=== PATIENT | female | born 1930 | race Caucasian/White ===

== ENCOUNTER 2017-10-30 20:55 | Observation (INO) | payer MEDICARE, BC ==
[2017-10-30] MEDS ORDERED: NITROGLYCERIN 0.4 MG/TAB BTL SL PRN (21:08)
--- NOTE | 2017-10-30 21:10 | ERNOTE ---
Chest Pain/Cardiac HPI Chief Complaint: Chest Pain Time Seen by Provider: 10/30/17 20:58 Source: patient, EMS Exam Limitations: no limitations Allergies/Adverse Reactions: Allergies gabapentin Adverse Reaction (Intermediate, Verified 10/31/17 00:31) Other omeprazole Adverse Reaction (Intermediate, Verified 10/31/17 00:31) Nausea Home Medications: HOME MEDICATIONS Lansoprazole [Prevacid] 15 mg PO DAILY 10/04/13 [Last Taken Unknown] Levothyroxine Sodium [Synthroid] 137 mcg PO DAILY 10/04/13 [Last Taken Unknown] Losartan Potassium [Cozaar] 50 mg PO BID 10/04/13 [Last Taken Unknown] Polyethylene Glycol 3350 [Miralax] 17 gm PO DAILY 10/04/13 [Last Taken Unknown] Spironolactone [Aldactone] 25 mg PO DAILY 10/04/13 [Last Taken Unknown] Vitamin B Complex [B Complex] 1 each PO DAILY 10/04/13 [Last Taken Unknown] amLODIPine BESYLATE [Norvasc (Amlodipine)] 5 mg PO DAILY 10/04/13 [Last Taken Unknown] Atorvastatin Calcium 40 mg PO HS 10/30/17 [Last Taken Unknown] Iron 28 mg PO DAILY 10/30/17 [Last Taken Unknown] Metoprolol Tartrate 50 mg PO BID 10/30/17 [Last Taken 10/30/17 07:00] Warfarin Sodium [Jantoven] 2.5 mg PO DAILY 10/30/17 [Last Taken Unknown] Warfarin Sodium [Jantoven] 5 mg PO DAILY 10/30/17 [Last Taken Unknown] Cyanocobalamin (Vitamin B-12) [Vitamin B-12] 1,000 mcg PO DAILY 10/31/17 [Last Taken Unknown] Iron,Carb/Vit C/Vit B12/Folic [Fe C Plus Tablet] 1 each PO DAILY 10/31/17 [Last Taken Unknown] Levothyroxine Sodium [Synthroid] 137 mcg PO DAILY 10/31/17 [Last Taken Unknown] Mineral Oil, Light/Mineral Oil [Soothe Xp Eye Drops] 1 drop OP PRN 10/31/17 [ Last Taken Unknown] [place]-3/Dha/Epa/Fish Oil [Fish Oil 1,000 mg Softgel] 1,000 mg PO HS 10/31/17 [ Last Taken Unknown] Spironolactone [Aldactone] 25 mg PO DAILY 10/31/17 [Last Taken Unknown] Warfarin Sodium [Jantoven] 2.5 mg PO DAILY 10/31/17 [Last Taken Unknown] Narrative: Pt had onset of chest pressure around 14:30 today. It has been consistent throughout the afternoon and evening at approx 3/10. On the ambulance she was given nitro which brought her chest pressure down to 1/10. Timing: constant Severity/Quality: mild Location: central Chest Pain Radiation: no radiation Activities at Onset: activity Modifying Factors - Improves: Present: nitroglycerin Aspirin Treatment Today: no aspirin today - cannot take ASA per patient Associated Symptoms: Present: shortness of breath - with Review of Systems - Review of Systems Constitutional: Absent: recent illness EYE: Present: no symptoms reported ENT: Present: no symptoms reported Respiratory: Present: shortness of breath - with activity more lately. Absent: cough Cardiology: Present: See HPI Gastrointestinal/Abdominal: Absent: nausea, vomiting Genitourinary: Present: no symptoms reported Musculoskeletal: Present: no symptoms reported Skin: Absent: rash Endocrine: Absent: excessive sweating, flushing Hematologic/Lymphatic: Present: no symptoms reported Psych: Present: no symptoms reported - Patient's Past Medical History Patient History - Cardiac/Respiratory: Atrial Fibrillation, Hypertension - Family History Mother Family History - Medical: Diabetes Type 2, Hypothyroidism Family History - Cardiac/Respiratory: CVA/Stroke, Hypertension Father Family History - Cancer: Stomach Brother Family History - Cardiac/Respiratory: CVA/Stroke son Family History - Medical: Family History - Cancer: Brain daughter Family History - Medical: Family History - Cardiac/Respiratory: Aneurysm Physical Exam - Physical Exam General Appearance: Present: wd/wn, alert, no apparent distress Head Exam: Present: normal inspection, no evidence of injury Eye Exam: Normal inspection: bilateral, PERRL: bilateral Ears, Nose, Throat: Present: normal ENT inspection Neck: Present: normal inspection, nontender Respiratory: Present: no respiratory distress, normal breath sounds, no accessory muscle use, lungs clear Cardiovascular/Chest: Present: regular rate, rhythm, no murmur Gastrointestinal/Abdominal: Present: nontender, nondistended, soft Back Exam: Present: normal inspection, normal range of motion Extremity Exam: Present: normal inspection, normal range of motion, no edema Neurological Exam: Present: alert, oriented, normal mood/affect, no motor/ sensory deficits Skin Exam: Present: normal color, warm/dry Lymphatic Exam: Present: no adenopathy ED Progress - Results and Orders Patient's Lab Results:: I have reviewed the patient's lab results. Results and Orders: Laboratory Tests 10/30/17 10/30/17 10/30/17 21:18 21:18 21:18 WBC 6.9 Hgb 13.1 Hct 37.3 Plt Count 144 L PT 22.1 H INR (Anticoag Therapy) 2.19 H PTT (Linda) 33.0 H Sodium 140 Potassium 3.7 Chloride 104 Carbon Dioxide 26.2 BUN 22 Creatinine 1.18 Random Glucose 138 H Calcium 9.1 Total Bilirubin 0.3 AST 17 ALT 30 Alkaline Phosphatase 73 Creatine Kinase CK-MB (CK-2) Troponin I 0.150 H* Total Protein 6.8 Albumin 3.6 10/30/17 21:18 WBC Hgb Hct Plt Count PT INR (Anticoag Therapy) PTT (Linda) Sodium Potassium Chloride Carbon Dioxide BUN Creatinine Random Glucose Calcium Total Bilirubin AST ALT Alkaline Phosphatase Creatine Kinase 102 CK-MB (CK-2) 2.3 Troponin I Total Protein Albumin - Vital Signs Patient's Vital Signs:: I have reviewed the patient's vital signs. - EKG EKG: RBBB - incomplete EKG read: Interp. by me EKG Comments: possible LVH, Old [place] - X-Ray X-Ray #1 X-Ray: chest Interpretation: Reviewed by me X-ray Comments: IMPRESSION: NO ACUTE CARDIOPULMONARY ABNORMALITY IDENTIFIED. Electronically signed by Gurpreet Hughes D.O.. - Progress/Reassessment Progress:: Unchanged Progress Note-Subjective: 10/30/17 23:45 Spoke with Ruy RG hospitalist. She agrees with obs admit. Departure Clinical Impression: Elevated troponin I level Chest pain Qualifiers: Chest pain type: other chest pain Qualified Code(s): R07.89 - Other chest pain ; R07.8 - Other chest pain - Departure Disposition: Short Term Hospital Inpatient Condition: Fair
[2017-10-30 21:25] LABS: Hematocrit 37.3 % (37.0-47.0); Hemoglobin 13.1 gm/dL (12.5-16.0); Mean Cell Volume 91.6 fl (78-100); Mean Corpuscular Hemoglobin 32.2 pg (27-31); Mean Corpuscular Hgb Conc 35.1 g/dl (32-36); Mean Platelet Volume 10.8 fl (6.0-9.5); Neutrophil # 4.1 K/mm3 (1.3-6.0); Neutrophil % 58.5 % (42-75.0); Platelet Count 144 K/mm3 (150-450); Red Blood Count 4.07 M/mm3 (4.2-5.4); Red Cell Distribution Width 12.6 % (11.5-14.0); White Blood Count 6.9 K/mm3 (4.0-10.5)
[2017-10-30 21:36] LABS: Prothrombin Time (Patient) 22.1 Seconds (9.0-11.0)
[2017-10-30 21:37] LABS: INR 2.19 INR (0.90-1.10)
[2017-10-30 21:44] LABS: Albumin * 3.6 gm/dl (3.4-5.0); Anion Gap 13.5 mmol/L (6.8-13.8); BUN/Creatinine Ratio 18.6 (9.0-21.6); Bilirubin, Total 0.3 mg/dL (0.0-1.1); Ca. Corrected For Albumin 9.1 mg/dL (8.4-10.2); Calcium * 9.1 mg/dL (7.9-10.9); Carbon Dioxide 26.2 mmol/L (24-32.6); Potassium 3.7 mmol/L (3.4-4.6); Total Protein 6.8 gm/dL (6.2-8.2)
[2017-10-30 21:46] LABS: Troponin I 0.15 ng/ml (0.00-0.10)
[2017-10-30 22:48] LABS: CKMB 2.3 ng/mL (0.0-9.0)
--- NOTE | 2017-10-31 00:47 | HP ---
Chief Complaint - Chief Complaint Date of Service: 10/31/17 Time of Service: 00:46 Chief Complaint: chest pressure History of Present Illness: 87 years old white female adm to the hospital with reports of chest pressure. PMH hypertension, hyperlipidemia,hypothyroidism, and a-fib (Coumadin). per family pt was scrubbing the bathroom and doing work around the house when she began experiencing chest pressure with numbness to her hands approximately at 8: 30pm. She denies shortness of breath, palpitation,nausea, vomiting, diaphoresis and dizziness. EMS was called and nitro tab given enroute to the hospital. In ER she denies chest pressure after nitro, Initial troponin 0.153, EKG- NSR No ST changes, CKMB and CK-unremarkable. Plan to adm for observation and monitor serial troponin as chest pain resolved with nitro-tab.Monitor on telemetry and Plan for stress test. plan of care discussed with pt and family they verbalized understanding and agrees. - Patient's Past Medical History Patient History - Medical: Diabetes Type 2, Depression, GERD, Hypothyroidism Patient History - Cardiac/Respiratory: Atrial Fibrillation - on coumadin, Hypertension, Hyperlipidemia Patient History - Cancer: No Hx of Cancer Patient History - Surgical Procedures: Appendectomy, Cholecystectomy, Hysterectomy, Other - Renal bypass. bowel resection secondary to strangulated bowel. Patient History - Other: None LMP (females 10-50): Menopausal - Family History Mother Family History - Medical: Diabetes Type 2, Hypothyroidism Family History - Cardiac/Respiratory: CVA/Stroke, Hypertension Father Family History - Medical: Family History - Cancer: Stomach Brother Family History - Cardiac/Respiratory: CVA/Stroke son Family History - Medical: Family History - Cancer: Brain daughter Family History - Medical: Family History - Cardiac/Respiratory: Aneurysm - Social History Living Situations: alone Abuse History: No History of abuse Psych History: Hx of Depression Does anyone smoke in the home?: No Smoking Status: Never smoker Have you smoked in the past 12 months: No Do you dip or chew tobacco: No Patient requests Smoking Cessation Consult: No Initiate information on Smoking Cessation: Yes Alcohol Use: none Drug Use: none - Immunizations Immunizations Up to Date: Yes Hx Pneumococcal Vaccination: Yes History of Influenza Vaccine: Yes Review Of Systems (GEN) - Review of Systems Generalized/Overall Review: Present: No Symptoms Reported EENTM: Present: No Symptoms Reported Respiratory: Present: No Symptoms Reported Cardiac: Present: No Symptoms Reported Abdominal: Present: No Symptoms Reported Genitourinary: Present: No Symptoms Reported Musculoskeletal: Present: No Symptoms Reported Neurological: Present: No Symptoms Reported Skin: Present: No Symptoms Reported Endocrine: Present: No Symptoms Reported Allergies/Adverse Reactions: Allergies Allergy/AdvReac Type Severity Reaction Status Date / Time gabapentin AdvReac Intermediate Other Verified 10/31/17 00:31 omeprazole AdvReac Intermediate Nausea Verified 10/31/17 00:31 Home Medications: HOME MEDICATIONS Lansoprazole [Prevacid] 15 mg PO DAILY 10/04/13 [Last Taken Unknown] Losartan Potassium [Cozaar] 50 mg PO BID 10/04/13 [Last Taken Unknown] Polyethylene Glycol 3350 [Miralax] 17 gm PO DAILY 10/04/13 [Last Taken Unknown] Spironolactone [Aldactone] 25 mg PO DAILY 10/04/13 [Last Taken Unknown] Vitamin B Complex [B Complex] 1 each PO DAILY 10/04/13 [Last Taken Unknown] amLODIPine BESYLATE [Norvasc (Amlodipine)] 5 mg PO DAILY 10/04/13 [Last Taken Unknown] Atorvastatin Calcium 40 mg PO HS 10/30/17 [Last Taken Unknown] Iron 28 mg PO DAILY 10/30/17 [Last Taken Unknown] Metoprolol Tartrate 50 mg PO BID 10/30/17 [Last Taken 10/30/17 07:00] Cyanocobalamin (Vitamin B-12) [Vitamin B-12] 1,000 mcg PO DAILY 10/31/17 [Last Taken Unknown] Levothyroxine Sodium [Synthroid] 137 mcg PO DAILY 10/31/17 [Last Taken Unknown] Mineral Oil, Light/Mineral Oil [Soothe Xp Eye Drops] 1 drop EACHEYE PRN PRN [Last Taken Unknown] [place]-3/Dha/Epa/Fish Oil [Fish Oil 1,000 mg Softgel] 1,000 mg PO HS 10/31/17 [ Last Taken Unknown] Vit A/Vit C/Vit E/Zinc/Copper [Preservision Areds Tablet] 1 each PO DAILY [Last Taken Unknown] Warfarin Sodium [Jantoven] 2.5 mg PO DAILY 10/31/17 [Last Taken Unknown] Warfarin Sodium [Jantoven] 5 mg PO .ONLY Monday10/31/17 [Last Taken Unknown] Exam - Exam Vital Signs: Vital Signs - Last Taken Temp 36.7 C 10/30/17 20:56 Pulse 63 10/30/17 23:42 Resp 18 10/30/17 23:42 BP 141/56 10/30/17 23:42 Pulse Ox 96 10/30/17 23:42 Constitutional: Present: Alert, Oriented x3, Cooperative, No distress, Morbidly obese ENT Exam: Present: hard of hearing Eye Exam: bilateral eye: normal inspection Neck: Present: full range of motion Back Exam: Present: normal inspection Respiratory: Present: chest non-tender, lungs clear, normal breath sounds, no respiratory distress Cardiovascular/Chest: Present: normal peripheral pulses, regular rate, rhythm, no chest tenderness, systolic murmur, edema - Trace BLLE Peripheral Pulses: dorsalis-pedis (R): 2+, dorsalis-pedis (L): 2+ Abdomen: Present: Normal bowel sounds, soft, nontender, nondistended, no rebound tenderness Extremity: Present: normal range of motion, non-tender, normal inspection, no calf tenderness, swelling Skin Exam: Present: normal color, warm/dry Neurologic: Present: oriented x 3 Appearance: Present: appropriate appearance, appropriate insight Eye contact: Present: cooperative, good eye contact Thoughts: Present: normal thought pattern, no apparent hallucination Diagnostic Studies: Laboratory Results WBC 6.9 K/mm3 (4.0-10.5) 10/30/17 21:18 RBC 4.07 M/mm3 (4.2-5.4) L 10/30/17 21:18 Hgb 13.1 gm/dL (12.5-16.0) 10/30/17 21:18 Hct 37.3 % (37.0-47.0) 10/30/17 21:18 MCV 91.6 fl (78-100) 10/30/17 21:18 MCH 32.2 pg (27-31) H 10/30/17 21:18 MCHC 35.1 g/dl (32-36) 10/30/17 21:18 RDW 12.6 % (11.5-14.0) 10/30/17 21:18 Plt Count 144 K/mm3 (150-450) L 10/30/17 21:18 MPV 10.8 fl (6.0-9.5) H 10/30/17 21:18 Immature Gran % (Auto) 0.30 % (0.001-0.429) 10/30/17 21: Immature Gran # (Auto) 0.02 K/mm3 (0.000-0.0310) 10/30/17 21:18 Neutrophils % 58.5 % (42-75.0) 10/30/17 21:18 Lymphocytes % 28.6 % (20-51) 10/30/17 21:18 Monocytes % 8.7 % (0.0-9) 10/30/17 21:18 Eosinophils % 3.3 % (0.0-3.0) H 10/30/17:18 Basophils % 0.6 % (0.0-1.0) 10/30/17: Nucleated RBC % 0.0 k/mm3 (0-1) 10/30/17: Neutrophils # 4.1 K/mm3 (1.3-6.0) 10/30/17 21:18 Lymphocytes # 2.0 k/mm3 (1.5-3.5) 10/30/17 21:18 Monocytes # 0.6 k/mm3 (0.0-1.0) 10/30/17 21:18 Eosinophils # 0.2 k/mm3 (0.0-0.7) 10/30/17 21:18 Absolute Basophils 0.0 k/mm3 (0.0-0.1) 10/30/17:18 PT 22.1 Seconds (9.0-11.0) H 10/30/17 21:18 INR (Anticoag Therapy) 2.19 INR (0.90-1.10) H 10/30/17 21:18 PTT (Linda) 33.0 Seconds (24-32) H 10/30/17 21:18 Sodium 140 mmol/L (132-142) 10/30/17 21:18 Plasma Sodium 141 mmol/L (130-142) 10/30/17 21:18 Potassium 3.7 mmol/L (3.4-4.6) 10/30/17 21:18 Chloride 104 mmol/L (97-106) 10/30/17 21:18 Carbon Dioxide 26.2 mmol/L (24-32.6) 10/30/17 21:18 Anion Gap 13.5 mmol/L (6.8-13.8) 10/30/17 21:18 BUN 22 mg/dL (3-23) 10/30/17 21:18 Creatinine 1.18 mg/dL (0.4-1.4) 10/30/17 21:18 Est GFR (Non-Af Amer) 46 mL/min (60-130) L 10/30/17 21:18 BUN/Creatinine Ratio 18.6 (9.0-21.6) 10/30/17 21:18 Random Glucose 138 mg/dL (70-110) H 10/30/17 21:18 Calcium 9.1 mg/dL (7.9-10.9) 10/30/17: Calcium Adj for Albumin 9.1 mg/dL (8.4-10.2) 10/30/17 21:18 Total Bilirubin 0.3 mg/dL (0.0-1.1) 10/30/17:18 AST 17 U/L (0-48) 10/30/17 21:18 ALT 30 U/L (19-67) 10/30/17 21:18 Alkaline Phosphatase 73 U/L (50-170) 10/30/17 21:18 Creatine Kinase 102 U/L (0-259) 10/30/17 21:18 CK-MB (CK-2) 2.3 ng/mL (0.0-9.0) 10/30/17 21:18 Troponin I 0.150 ng/ml (0.00-0.10) H* 10/30/17 21:18 Total Protein 6.8 gm/dL (6.2-8.2) 10/30/17 21:18 Albumin 3.6 gm/dl (3.4-5.0) 10/30/17 21:18 CXR: No acute cardiopulmonary findings Assessment/Plan - Narrative Narrative: Chest pain EMS gave pt nitro tab x1, in ER chest pain was resolved feeling of numbness in hands had resolved EKG- NSR, repeat in the morning with 3rd troponin. Continue with Telemetry monitoring CXR:No acute cardiopulmonary abnormality identified. On adm troponin 0.150--->0.136----> trending down Low sodium diet Continue with home dose Lipitor 40mg Q HS Consider having Cardiac stress out-pt Elevated troponin on adm 0.150---->0.136 Plan same as #1 A-Fib EKG- NSR On adm INR 2.19 Continue with home dose of Coumadin, pharmacy to manage Chronic conditions- stable Hypertension Hypothyroidism Glaucoma Code status: Full GI ppx: protonix VTE ppx: Ambulate and SCD Time 45 minutes and case discussed with Dr Martins - Assessment/Plan (1) Chest pain Problem: Acute Qualifiers: Chest pain type: other chest pain Qualified Code(s): R07.89 - Other chest pain; R07.8 - Other chest pain (2) Elevated troponin I level Problem: Acute (3) Afib Problem: Chronic (4) Hypertension Problem: Chronic (5) Hypothyroidism Problem: Chronic (6) Glaucoma Problem: Chronic
[2017-10-31] MEDS ORDERED: [UNRECOGNIZED DRUG - OTHER] OP PRN (01:48)
[2017-10-31] MEDS ORDERED: PANTOPRAZOLE SODIUM 20 MG TABLET.DR PO SCH (07:00)
[2017-10-31] MEDS ORDERED: LEVOTHYROXINE SODIUM 137 MCG TABLET PO SCH (07:00)
[2017-10-31 07:18] LABS: Prothrombin Time (Patient) 21.4 Seconds (9.0-11.0)
[2017-10-31 07:19] LABS: INR 2.12 INR (0.90-1.10)
[2017-10-31 07:26] LABS: Chol/HDL Risk Ratio 2.9 mg/dL (3.3-4.4); Troponin I 0.088 ng/ml (0.00-0.10)
[2017-10-31] MEDS: ASPIRIN 81 MG TABLET.DR PO SCH ×2 (08:16→08:22)
[2017-10-31] MEDS ORDERED: Iron 28 MG PO SCH (09:00)
[2017-10-31] MEDS ORDERED: CYANOCOBALAMIN 1,000 MCG TABLET PO SCH (09:00)
[2017-10-31] MEDS ORDERED: BETA-CAROTENE(A) W-C , E/MIN 1 TAB TABLET PO SCH (09:00)
[2017-10-31] MEDS ORDERED: METOPROLOL TARTRATE 50 MG TABLET PO SCH (09:00)
[2017-10-31] MEDS ORDERED: [UNRECOGNIZED DRUG - OTHER] PO SCH (09:00)
[2017-10-31] MEDS ORDERED: LOSARTAN POTASSIUM 50 MG TABLET PO SCH (09:00)
[2017-10-31] MEDS ORDERED: POLYETHYLENE GLYCOL 3350 119 GM BTL PO SCH (09:00)
[2017-10-31] MEDS ORDERED: VITAMIN B COMP W-C 1 TAB TABLET PO SCH (09:00)
[2017-10-31] MEDS ORDERED: SPIRONOLACTONE 25 MG TABLET PO SCH (09:00)
[2017-10-31] MEDS ORDERED: amLODIPine BESYLATE 5 MG TABLET PO SCH (09:00)
--- NOTE | 2017-10-31 11:34 | DS ---
(1) Chest pain Problem: Acute Description of Stay: [place] is an 87 yo female that was admitted for chest pain that began after scrubbing the floors. Initial evaluation showed troponin slightly elevated in the indeterminate range. Her chest pain was resolved at the time of admission. Her ECG showed no acute changes. She was admitted to observation with serial troponins and monitoring on telemetry. The indeterminate troponin came down into normal range and there were no significant events on telemetry. She was discharged to home and it is suspected that chest pain was musculoskeletal from scrubbing her floors. Procedures Performed: none Discharge Disposition: Home self care Disposition: Home self-care Condition: Fair Discharge Activity: Activity as tolerated Discharge Diet: General/regular food Referrals: Ebonie Zurita MD [Primary Care Provider] - Problem Oriented Discharge Instructions to Patient/Family: Chest Pain Observation Additional Patient Instructions (free text): Follow up with primary Dr. Ebonie Zurita on Nov 08 at 8:30. Complete Home Medications List: Complete Home Medication List: Lansoprazole [Prevacid] 15 mg PO DAILY 10/04/13 Losartan Potassium [Cozaar] 50 mg PO BID 10/04/13 Polyethylene Glycol 3350 [Miralax] 17 gm PO DAILY 10/04/13 Spironolactone [Aldactone] 25 mg PO DAILY 10/04/13 Vitamin B Complex [B Complex] 1 each PO DAILY 10/04/13 amLODIPine BESYLATE [Norvasc] 5 mg PO DAILY 10/04/13 Atorvastatin Calcium 40 mg PO HS 10/30/17 Iron 28 mg PO DAILY 10/30/17 Metoprolol Tartrate 50 mg PO BID 10/30/17 Cyanocobalamin (Vitamin B-12) [Vitamin B-12] 1,000 mcg PO DAILY 10/31/17 Levothyroxine Sodium [Synthroid] 137 mcg PO DAILY 10/31/17 Mineral Oil, Light/Mineral Oil [Soothe Xp Eye Drops] 1 drop EACHEYE PRN PRN [place]-3/Dha/Epa/Fish Oil [Fish Oil 1,000 mg Softgel] 1,000 mg PO HS 10/31/17 Vit A/Vit C/Vit E/Zinc/Copper [Preservision Areds Tablet] 1 each PO DAILY Warfarin Sodium [Jantoven] 2.5 mg PO DAILY 10/31/17 Warfarin Sodium [Jantoven] 5 mg PO .ONLY Monday10/31/17
[2017-10-31 12:04] VITALS: BP 175/69
[2017-10-31] MEDS ORDERED: WARFARIN SODIUM 2.5 MG TABLET PO SCH (17:00)
[2017-10-31] MEDS ORDERED: ATORVASTATIN CALCIUM 40 MG TABLET PO SCH (21:00)
[2017-10-31] MEDS ORDERED: OMEGA-3 FATTY ACIDS 1 CAP CAPSULE PO SCH (21:00)
[2017-11-01] MEDS ORDERED: WARFARIN SODIUM 5 MG TABLET PO SCH (17:00)
== END 2017-10-31 13:00 | disposition home or self-care (01) ==
LOC: ER 20:55 → MS 23:32
PROVIDERS: ADMIT Nurse Practitioner; ATTEND Family Medicine
DX: R07.89 Other chest pain (principal); I48.91 Unspecified atrial fibrillation; R78.89 Finding of other specified substances, not normally found in blood; Z79.01 Long term (current) use of anticoagulants; I10 Essential (primary) hypertension; E78.5 Hyperlipidemia, unspecified; E03.9 Hypothyroidism, unspecified; E11.9 Type 2 diabetes mellitus without complications; K21.9 Gastro-esophageal reflux disease without esophagitis; Z68.31 Body mass index [BMI] 31.0-31.9, adult
CPT/HCPCS: 36415; 71045; 80053; 80061; 82550; 82553; 84484; 85025; 85610; 85730; 93005; 99284; G0378